=== PATIENT | male | born 1945 | race Caucasian/White ===

== ENCOUNTER 2021-12-24 19:06 | Emergency (ER) | payer MEDICARE, OTHER ==
[2021-12-24 19:28] VITALS: BP 145/82
[2021-12-24] MEDS ORDERED: TRANEXAMIC ACID 1,000 MG/10 ML VIAL NAS STA (19:59)
--- NOTE | 2021-12-24 19:59 | ED Physician Documentation ---
PD HPI HEENT - Stated complaint Stated Complaint: NOSE BLEED - Chief complaint Chief Complaint: Heent - History obtained from History obtained from: Patient, Family - History of Present Illness Timing - onset: Today Timing - duration: Hours (1) Timing - details: Abrupt onset Pain level max: 0 Pain level now: 0 Location: Other (Left nare) Improves: Other (pressure) Worsens: Other (nothing) Associated symptoms: No: Fever, Congestion, Rhinorrhea, Trismus, Unable to swallow, Swollen nodes, Facial swelling, Headache, Cough - Additional information Additional information: 76-year-old male presents to the emergency department with left-sided nosebleed today. This started about an hour prior to arrival. Nothing makes it better or worse. He had a nosebleed about 6 months ago that required cauterization. Does not take any blood thinners. Nothing makes it better or worse. No trauma. No recent illness. Review of Systems Constitutional: denies: Fever, Chills Nose: reports: Epistaxis GI: denies: Vomiting Skin: denies: Rash Musculoskeletal: denies: Neck pain, Back pain Neurologic: denies: Headache PD PAST MEDICAL HISTORY - Past Medical History Past Medical History: Yes Respiratory: Asthma HEENT: Glaucoma - Present Medications Home Medications: Ambulatory Orders Medication Instructions Recorded Confirmed Dorzolamide HCl/Pf [Dorzolamide 2% 12/24/21 Eye Drop] Latanoprost 0.005% Ophth Drops 12/24/21 [Xalatan Ophth Drops] Tiotropium Br/Olodaterol HCl 12/24/21 [Stiolto Respimat Inhal [place]] Tiotropium [place] [Spiriva 12/24/21 Respimat] - Allergies Allergies/Adverse Reactions: Allergies Allergy/AdvReac Type Severity Reaction Status Date / Time No Known Drug Allergies Allergy Verified 12/24/21 19:20 - Living Situation Living Situation: reports: With family Living Arrangement: reports: At home - Social History Does the pt smoke?: No Does the pt have substance abuse?: No - Family History Family history: reports: Non contributory PD ED PE NORMAL - Vitals Vital signs reviewed: Yes - General General: Alert and oriented X 3, No acute distress - HEENT HEENT: Moist mucous membranes, Other (Dried blood in the left nare. No active bleeding. Right nare is normal.) - Neck Neck: Supple, no meningeal sign - Cardiac Cardiac: RRR - Respiratory Respiratory: No respiratory distress, Clear bilaterally - Derm Derm: Warm and dry - Neuro Neuro: Alert and oriented X 3 Results - Vitals Vitals: Vital Signs - 24 hr 12/24/21 19:17 Temperature 37.2 C Heart Rate 76 Respiratory 20 Rate Blood Pressure 145/82 H O2 Saturation 97 Oxygen O2 Source Room air PD MEDICAL DECISION MAKING - ED course Complexity details: reviewed results, re-evaluated patient, considered differential, d/w patient ED course: No active bleeding here. Tranexamic acid was sprayed intranasally. The patient was monitored for any further bleeding for approximately 20 minutes. No further bleeding. We will have him follow-up with his doctor as needed for further care. Patient counseled regarding signs and symptoms for which I believe and urgent re-evaluation would be necessary. Patient with good understanding of and agreement to plan and is comfortable going home at this time This document was made in part using voice recognition software. While efforts are made to proofread this document, sound alike and grammatical errors may occur. Departure - Departure Disposition: 01 Home, Self Care Clinical Impression: Epistaxis Condition: Good Instructions: ED Nosebleed Follow-Up: Your,doctor as needed [Other] Comments: Please follow-up with your doctor as needed for further care. You can use Afrin twice daily in the nose over the next 2 days. Do not use for longer than that. Return if you worsen. If the bleeding recurs, please apply the nose clamp and leave for approximately 20 minutes. If it does not stop, please return for repeat evaluation. Discharge Date/Time: 12/24/21 20:48
== END 2021-12-24 20:48 | disposition home or self-care (01) ==
LOC: ED 19:06
DX: R04.0 Epistaxis (principal)
CPT/HCPCS: 99281; 99282